=== PATIENT | female | born 1985 | race Caucasian/White ===

== ENCOUNTER 2017-07-27 17:44 | Inpatient (IN) | payer OTHER ==
[~2017-07-27] VITALS: Ht 185.4 cm; Wt 91.9 kg
[2017-07-27 18:11] VITALS: BP 114/70; PULSE 80; RESP 22; O2SAT 99
--- NOTE | 2017-07-27 18:56 | ED.REPORT ---
HPI-General Illness Date of Service Jul 27, 2017 ED Provider: Andrei Robbins MD Pt is a female who is 34 weeks that presents to the ED c/o SOB onset 1300 today. She states her symptoms worsen with exertion and with lying down. She states that it is moderate in severity, constant, and associated with chest tightness. No lower extremity swelling or edema. No recent extended travel. She denies chills, blurred vision, abdominal pain, rash, numbness/tingling, neck pain, sore throat, or change in mental status. Nursing Notes Stated Complaint: DIFFICULTY BREATHING,RAPID HEART RATE,34 WKS PREG Chief Complaint: Respiratory Distress Nursing Notes Reviewed: Yes Allergies: Coded Allergies: No Known Allergies (Verified Allergy, Unknown, 07/27/17) General Time Seen by MD: 18:50 Chief Complaint Breathing problem Hx Obtained From: Patient Sudden in Onset?: Yes Quality: Painful Severity: Current: Mild Severity: Maximum: Mild Pertinent Negative: Pt denies other symptoms Exacerbated by: Moving affected area Recent Healthcare: No recent doctor visit, No recent hospitalization Similar Sx Previous: No Past Medical History Past Medical History Denies: Asthma, Diabetes mellitus Past Surgical History denies Smoking History Never Smoker Social History Alcohol Use: Denies alcohol use Drug Use: Denies drug use Other Social History: Occupation lives with work at [employer] 07/27/2017 Ambulatory Status Independent Review of Systems Full Review of Systems Constitutional: Denies: Chills Eyes: Denies: Blurred left, Blurred right Ears / Nose / Throat: Denies: Sore throat Respiratory: Reports: Dyspnea on exertion, Shortness of breath Cardiovascular: Reports: Dyspnea on exertion GI: Denies: Abdominal pain Musculoskeletal: Denies: Neck pain Skin: Denies Rash Neurologic: Denies: Numbness Psychiatric: Denies: Change mental status Complete sys rev & neg: except as marked. Physical Exam Nursing note and vitals reviewed. Constitutional: Well-developed, well-nourished. Not diaphoretic. Head: Normocephalic and atraumatic. Mouth/Throat: Oropharynx is clear and moist. No oropharyngeal exudate. Eyes: EOM are normal. Pupils are equal, round, and reactive to light. Neck: Supple, no tracheal deviation. Cardiovascular: Normal rate, regular rhythm. Equal and intact distal pulses throughout. Pulmonary/Chest: Effort normal and breath sounds normal. No respiratory distress. Abdominal: Gravid. Musculoskeletal: Range of motion grossly intact, moving all extremities. No edema or tenderness appreciated. Neurological: AOx3. Grossly nonfocal exam. Strength and sensation intact and equal to bilateral upper and lower extremities. Skin: Warm and dry, no rashes or pallor appreciated. Psychiatric: Appropriate mood and affect. Behavior appears normal. Vital Signs Vital Signs Date Time Temp Pulse Resp B/P Pulse Ox O2 Delivery O2 Flow Rate FiO2 07/27/17 18:11 37.0 80 22 114/70 99 Room Air Initial VS: Reviewed, Vital signs normal Interpretation & Diagnostics US VENOUS LEG DUPLEX BILATERAL IMPRESSION: 1. there is deep venous thrombosis in the left popliteal vein . It is occlusive and acute. 2. No abnormality is seen in the right leg. Dictated by: Teddy Mcgregor M.D. on 07/27/2017 at 21:28 Approved by: Teddy Mcgregor M.D. on 07/27/2017 at 21:30 Lab Results Interpretation Result Diagram: 07/28/17 0505 07/28/17 0505 Test 07/27/17 18:49 07/27/17 18:50 07/27/17 19:19 Sodium Level 137mEq/L (134-144) Chloride Level 102mEq/L (97-108) Carbon Dioxide Level 20mmol/L (18-29) Blood Urea Nitrogen 6mg/dL (6-20) Creatinine 0.56mg/dL (0.57-1.00) Estimat Glomerular Filtration Rate 180mL/min (>59) Glucose Level 105mg/dL (60-99) Calcium Level 8.6mg/dL (8.5-10.1) Total Bilirubin 0.2mg/dL (0.0-1.2) Aspartate Amino Transf (AST/SGOT) 48U/L (0-50) Alanine Aminotransferase (ALT/SGPT) 34U/L (0-32) Alkaline Phosphatase 67U/L (25-150) Troponin T < 0.010ug/L (0.0-0.011) Pro-B-Type Natriuretic Peptide 44.30pg/mL (0-130) Total Protein 6.5g/dL (6.4-8.4) Albumin 3.4g/dL (3.4-5.0) Hold Morales Top Tube Received (Received) Urine Color Straw (YELLOW) Urine Appearance Clear (CLEAR,HAZY) Urine pH 5.5 (5.0-8.0) Urine Specific [place] 1.005 (1.003-1.035) Urine Protein Negativemg/dL (NEG,TRACE) Urine Glucose (UA) 100mg/dL (NEGATIVE) Urine Ketones Negativemg/dL (NEGATIVE) Urine Occult Blood Negative (NEGATIVE) Urine Nitrite Negative (NEGATIVE) Urine Bilirubin Negative (NEGATIVE) Urine Urobilinogen Normalmg/dL (NORMAL) Urine Leukocyte Esterase Negative (NEGATIVE) Urine RBC 0-2/hpf (0-2) Urine WBC 0-5/hpf (0-5) Urine Epithelial Cells Few/hpf (NONE-MOD) Urine Crystals None seen (NONE SEEN) Urine Bacteria None/hpf (NONE-FEW) Urine Hyaline Casts None/lpf (NONE) Urine Granular Casts None seen (NONE SEEN) Urine Waxy Casts None seen (NONE SEEN) Urine Red Blood Cell Casts None seen (NONE SEEN) Urine White Blood Cell Casts None seen (NONE SEEN) Urine Mucus None seen (None Seen) Urine Trichomonas None seen (NONE SEEN) Urine Yeast None (NONE SEEN) Urinalysis Comment None Urine Culture Reflexed Not indicated Hold Urine Received (Received) ECG Interpretation ECG Interpretation: Sinus rhythm, rate 79 Ventricular trigeminy Time: 18:52 Interpreted by: ED physician CT Chest Interpretation IMPRESSION: Pulmonary embolus is not identified. No acute disease is seen in the lungs. Other than what is thought to be a most miniscule amount of pleural fluid posteriorly Dictated by: Teddy Mcgregor M.D. on 07/27/2017 at 21:30 Approved by: Teddy Mcgregor M.D. on 07/27/2017 at 21:36 Study type: CT pulm angiogram Interpretation / Wet Read by: Interpret - Radiologist Re-Eval/Medical Decision Med Decision/Clinical Course 32 year old female presents with sudden onset of shortness of breath, since 1 pm today. Patient reports in the few hours her heart has been feeling "heavy" Labs are unremarkable. US and CT PE are pending. Discussed the risks vs benefits of the CT imaging and patient agrees to imaging. Labs: CMP: Potassium: 3.6 Magnesium: 1.8 Negative troponin BNP within normal limits CMP otherwise grossly within normal limits CBC: WBC 10.6 CBC otherwise grossly within normal limits US VENOUS LEG DUPLEX BILATERAL IMPRESSION: 1. there is deep venous thrombosis in the left popliteal vein . It is occlusive and acute. 2. No abnormality is seen in the right leg. EKG: Sinus rhythm, rate [address] Angiogram of Chest Pulmonary Embolism: IMPRESSION: Pulmonary embolus is not identified. Risks and benefits of Lovenox discussed with patient. Possible that she may have a peripheral PE not identified on the CT scan. Plan admission for further management and evaluation, anticoagulation, CHAINSAW MECHANIC consultation. Patient agreeable to the plan as stated, no further questions. Source of Hx: Old records Time of Eval: 21:52 Re-Evaluation/Progress Note: Pt rechecked. Discussed plan for admission. Pt understands and agrees with plan. All questions addressed. Consultation #1: Referral / Consult Name: Aristides Mcneil MD Consulted With: Hospitalist Call Returned at: 21:44 Area Secretary: Will see patient, Agrees with plan, Accepts admit Note: Dr. Robbins discussed pt's case with hospitalist, Dr. Mcneil. He accepts admission. Consultation #2: Referral / Consult Name: Tomás Negrete MD Consulted With: Cardiology Call Returned at: 20:11 Area Secretary: Agrees with eval, Agrees with plan Note: Discussed pt's case with refining equipment operator, Dr. Negrete. He recommends keeping her potassium levels above 4 and magnesium above 2. Consultation #3: Referral / Consult Name: Jared Whipple MD Call Returned at: 22:33 Area Secretary: Agrees with eval, Agrees with plan Note: Discussed pt's case with CHAINSAW MECHANIC, Dr. Whipple. Counseled Regarding: Diagnosis, Lab results, Need for admission Discharge & Departure Primary Impression: DVT (deep vein thrombosis) in Additional Impressions: Respiratory distress Weeks of gestation: 34 weeks Qualified Code: Z3A.34 - 34 weeks gestation of Disposition: ADMITTED TO HOSPITAL Discharge Condition All VS Reviewed: Yes Condition: Stable Referrals: Tino Roman MD (PCP) EDSupervising Provider for APC: Andrei Robbins MD Scribe Attestation Portions of this note were transcribed by Britta Mercado. I, Dr. Robbins, personally performed the history, physical exam and medical decision-making; I reviewed and confirmed the accuracy of the information in the transcribed note. Attending Statement I saw and evaluated the patient both independently and in conjunction with the [employer]. I agree with the plan and findings as documented above, and have documented my own history and physical above and edited the rest as such. copies to: Tino Roman MD, William B MD Jul 27, 2017 18:56 Jaida Butt [employer] Jul 27, 2017 20:06 Britta Mercado Jul 27, 2017 21:58 2. No abnormality is seen in the right leg. EKG: Sinus rhythm, rate [address] Angiogram of Chest Pulmonary Embolism: IMPRESSION: Pulmonary embolus is not identified. Risks and benefits of Lovenox discussed with patient. Possible that she may have a peripheral PE not identified on the CT scan. Plan admission for further management and evaluation, anticoagulation, CHAINSAW MECH[employer]IC consultation. Patient agreeable to the plan as stated, no further questions. Source of Hx: Old records Time of Eval: 21:52 Re-Evaluation/Progress Note: Pt rechecked. Discussed plan for admission. Pt understands and agrees with plan. All questions addressed. Consultation #1: Referral / Consult Name: Aristides Mcneil MD Consulted With: Hospitalist Call Returned at: 21:44 Area Secretary: Will see patient, Agrees with plan, Accepts admit Note: Dr. Robbins discussed pt's case with hospitalist, Dr. Mcneil. He accepts admission. Consultation #2: Referral / Consult Name: Tomás Negrete MD Consulted With: Cardiology Call Returned at: 20:11 Area Secretary: Agrees with eval, Agrees with plan Note: Discussed pt's case with refining equipment operator, Dr. Negrete. He recommends keeping her potassium levels above 4 and magnesium above 2. Consultation #3: Referral / Consult Name: Jared Whipple MD Call Returned at: 22:33 Area Secretary: Agrees with eval, Agrees with plan Note: Discussed pt's case with CHAINSAW MECHANIC, Dr. Whipple. Counseled Regarding: Diagnosis, Lab results, Need for admission Discharge & Departure Primary Impression: DVT (deep vein thrombosis) in Additional Impressions: Respiratory distress Weeks of gestation: 34 weeks Qualified Code: Z3A.34 - 34 weeks gestation of Disposition: ADMITTED TO HOSPITAL Discharge Condition All VS Reviewed: Yes Condition: Stable Referrals: Tino Roman MD (PCP) EDSupervising Provider for APC: Andrei Robbins MD Attestation Portions of this note were transcribed by Britta Mercado. I, Dr. Robbins, personally performed the history, physical exam and medical decision-making; I reviewed and confirmed the accuracy of the information in the transcribed note. Attending Statement I saw and evaluated the patient both independently and in conjunction with the [employer]. I agree with the plan and findings as documented above, and have documented my own history and physical above and edited the rest as such. copies to: Tino Roman MD, William B MD Jul 27, 2017 18:56 Jaida Butt [facility] Jul 27, 2017 20:06 Britta Mercado Jul 27, 2017 21:58
[2017-07-27 18:57] LABS: BASOPHILS % (AUTO) 0.2 % (0-3); EOSINOPHILS % (AUTO) 1.8 % (0-5); MONOCYTES % (AUTO) 8.8 % (4-12); Mean Corpuscular Hemoglobin 30.6 pg (27.0-35.0); Mean Corpuscular Volume 88.5 fL (81-100); NEUTROPHILS % (AUTO) 74.1 % (40-74); Platelet Count 198 bil/L (150-400)
[2017-07-27 19:11] LABS: INR 0.86 ratio
[2017-07-27 19:26] LABS: Magnesium 1.8 mg/dL (1.6-2.6)
[2017-07-27 19:27] LABS: TROPONIN T < 0.010 ug/L (0.0-0.011)
--- NOTE | 2017-07-27 21:31 | DRSVH ---
PROCEDURE: US VENOUS LEG DUPLEX BILATERAL INDICATIONS: SOB TECHNIQUE: Real-time imaging, as well as color and pulse Doppler interrogation, were performed of the deep veins of both legs from the inguinal ligament to the popliteal fossa. COMPARISON: None. FINDINGS: The deep veins on the right are normally compressible, and free of intraluminal thrombus. Color and pulse Doppler demonstrate normal phasic intravascular flow. There is normal augmentation response to distal compression maneuver. The left leg shows the common femoral and superficial femoral veins to be open without thrombus. The popliteal vein on the left however shows occlusive thrombus IMPRESSION: 1. there is deep venous thrombosis in the left popliteal vein . It is occlusive and acute. 2. No abnormality is seen in the right leg. Dictated by: Teddy Mcgregor M.D. on 07/27/2017 at 21:28 Approved by: Teddy Mcgregor M.D. on 07/27/2017 at 21:30
--- NOTE | 2017-07-27 21:38 | DRSVH ---
PROCEDURE: CT ANGIO CHEST PULMONARY EMBOLISM ([id number]) INDICATIONS: 34 WEEKS , sob TECHNIQUE: After the administration of intravenous contrast, 2 mm thick sections acquired from the pulmonary [place] to the posterior costophrenic angles. 3-dimensional maximum intensity projection (MIP) coronal a nd sagittal reformats were then acquired through the thorax. For radiation dose reduction, the follo wing was used: automated exposure control, adjustment of mA and/or kV according to patient size. COMPARISON: None. FINDINGS: Image quality: Fair because of somewhat heterogeneous contrast density in the pulmonary vasculature t owards the end of the injection. Pulmonary arteries: Pulmonary arteries are normal in size, and demonstrate no intraluminal filling d efects to suggest central pulmonary embolism. Lungs and pleura: Lungs are clear. No pleural effusions or pneumothorax. Central and peripheral ai rways are patent. Mediastinum: Heart size is normal, without pericardial effusion. No mediastinal or hilar adenopathy . Thoracic aorta is normal in caliber and enhancement. Esophagus is normal in caliber, without hiat al hernia. Bones and chest wall: No suspicious bony lesions. Ribs and thoracic spine appear intact throughout. Thyroid gland is within normal limits. No axillary or supraclavicular adenopathy. Abdomen: Visualized upper abdominal solid organs appear normal in the early arterial phase of enhanc ement. IMPRESSION: Pulmonary embolus is not identified. No acute disease is seen in the lungs. Other than wh at is thought to be a most miniscule amount of pleural fluid posteriorly Dictated by: Teddy Mcgregor M.D. on 07/27/2017 at 21:30 Approved by: Teddy Mcgregor M.D. on 07/27/2017 at 21:36
[2017-07-27] MEDS ORDERED: Polyethylene Glycol (PEG) 17 Gm Powder PO PRN (22:55)
[2017-07-27] MEDS ORDERED: Alum-Mag Hydrox-Simeth 30 mL Suspension PO PRN (22:55)
[2017-07-27] MEDS ORDERED: Ondansetron 2 mg/mL 2 mL Inj IVPUSH PRN (22:55)
[2017-07-27] MEDS ORDERED: Heparin 5,000 Unit/mL Inj IVPUSH PRN (23:05)
[2017-07-27] MEDS ORDERED: Heparin 25K Unit/500mL 0.45 NS 25,000 UNIT in IV Premix 1 EACH IV SCH (23:05)
[2017-07-27 23:06] VITALS: BP 126/64; PULSE 67; RESP 18; O2SAT 98
--- NOTE | 2017-07-27 23:13 | PCM.HPMED ---
Subjective Date of Service Jul 27, 2017 Primary Provider: Admitting Physician: Aristides Mcneil MD Primary Care Physician: Tino Roman MD Attending Physician: Aristides Mcneil MD Admit Status: From the Emergency Department Chief Complaint: Chest heaviness History of Present Illness: Patient is a 32-year-old female 2 para 1 at 34 weeks presented with difficulty breathing and bounding heartbeat Patient is a 32-year-old female 34 weeks , otherwise healthy. She states that today she started feeling as if she had a pounding heartbeat and accompanying difficulty breathing. She states she has never had anything like this before. She admits to a history of heartburn, but states this feels different. She admits to polyuria without dysuria or hematuria. She admits to increased bowel movements, approximately 3 per day and soft poorly formed stool. She denies lightheadedness, dizziness, chest pain, nausea, vomiting. Review of Systems: Complete ROS was performed and pertinent positives and negatives included in the history of present illness. All other findings were negative. Allergies Coded Allergies: No Known Allergies (Verified Allergy, Unknown, 07/27/17) Home Medications 1. vitamin PMH 1. No past medical history Surgical History 1. Anterior cruciate ligament repair left leg Family History No family history of blood clots, strokes, heart problems. Social History Hx Alcohol Use: Yes (occasional) Hx Substance Use: No Hx Tobacco Use: No Smoking Status: Never Smoker Living Arrangement: with Family Exam Vital Signs Vital Sign - Last Date Time Temp Pulse Resp B/P Pulse Ox O2 Delivery O2 Flow Rate FiO2 07/27/17 18:11 37.0 80 22 114/70 99 Room Air Exam General: Nondistressed, well-developed gravid female HEENT: NC/AT, PERRLA, EOM intact. Nontender sinuses, no nasal discharge. Good dentation, no erythema, nor exudate present in oropharynx. No thyromegaly appreciated. CV: Irregular rhythm, no murmurs, gallops, or rubs appreciated RESP: Clear to auscultation bilaterally, no wheezes or rhonchi appreciated ABD: Bowel sounds normal, gravid, nontender to palpation. Positive CVA on right , no suprapubic tenderness EXT: No joint swelling, no edema appreciated. Positive Houmans sign on the left LYMPH: No cervical or axillary adenopathy appreciated NEURO: Symmetric face, cranial nerves grossly intact, strength intact bilaterally upper and lower extremities, sensation to light touch intact bilaterally upper and lower extremities. PSYCH: Oriented 4. Linear and appropriate conversation. Skin: No rashes or ecchymosis appreciated Lab and Diagnostics Result Diagram: 07/27/17184807/27/171848 Assessment & Plan Patient is a 32-year-old 2 para 1 female that presents with shortness of breath and pounding heartbeat without any known past medical problems 1. DVT left lower extremity, present upon admission and ongoing -Patient found to have DVT by ultrasound and lower left extremity -Start anticoagulation therapy. Patient is 34 weeks without risk factors for early delivery. -Patient was started on heparin with heparin loading dose. Pharmacy called to recommend Lovenox, PERSONNEL RESEARCH PSYCHOLOGIST found heparin acceptable. Continue heparin for time being with expectation to discharge on Lovenox. 2. Dysrhythmia, present upon admission and ongoing -Patient has no known history of dysrhythmias, bigeminy present on EKG in emergency department -Cardiology consulted, they recommend replacing potassium to 4 and magnesium to 2. Patient is 3.6 and 1.8 upon admission -Negative troponin, BNP within normal limits - Started potassium magnesium replacement protocol -This is likely the cause of her shortness of breath. PE CT showed no indication of PE at this time. 3. CVA tenderness, present on admission and ongoing -UA to rule out UTI. -Very mild leukocytosis at 10.6 with very mild left shift at 74.1 neutrophils Patient has been admitted into inpatient, she is expected to spend greater than to midnight in the hospital Pain Evaluation: Adequate Pain Control GI Prophylaxis: Proton Pump Inhibitor Resuscitation Status: CPR: Attempt Resuscitation Attending Statement The patient was seen and examined together with Dr. Berg on 07/27 and I agree with the history, exam and plan as outlined in the note above. Kym Berg DO Jul 27, 2017 23:13 Aristides Mcneil MD Jul 28, 2017 01:24
[2017-07-27 23:18] LABS: APPEARANCE,URINE CLEAR (CLEAR,HAZY); COLOR,URINE STRAW (YELLOW); OCCULT BLOOD,URINE NEGATIVE (NEGATIVE); PH,URINE 5.5 (5.0-8.0); UROBILINOGEN,URINE NORMAL (NORMAL)
[2017-07-27 23:40] VITALS: BP 125/77; PULSE 64; RESP 20; O2SAT 99
[2017-07-27 23:41] VITALS: PULSE 78
[2017-07-28] VITALS (7 sets, daily range): BP systolic 113–126; BP diastolic 59–70; PULSE 61–74; RESP 18–20; O2SAT 95–98
[2017-07-28 00:04] LABS: INR 0.86 ratio
[2017-07-28] MEDS ORDERED: Heparin Protocol Boluses IVPUSH PRN (01:10)
[2017-07-28] MEDS: Magnesium Sulfate 50% Inj 1 GM in Dextrose 5% 50 ML IV ONE ×2 (01:17→01:41)
[2017-07-28] MEDS: Heparin 25K Unit/500mL 0.45 NS 25,000 UNIT in IV Premix 1 EACH IV SCH ×2 (01:17→15:10)
[2017-07-28] MEDS ORDERED: Potassium Chloride 20 mEq SR Tablet PO ONE ×2 (01:30→08:15)
[2017-07-28 05:25] LABS: BASOPHILS % (AUTO) 0.2 % (0-3); EOSINOPHILS % (AUTO) 2.5 % (0-5); MONOCYTES % (AUTO) 8.6 % (4-12); Mean Corpuscular Hemoglobin 30.5 pg (27.0-35.0); Mean Corpuscular Volume 89.1 fL (81-100); NEUTROPHILS % (AUTO) 66.7 % (40-74); Platelet Count 175 bil/L (150-400)
--- NOTE | 2017-07-28 06:21 | NUR ---
Admit Pt admitted around 2340, A&O, denies any pain, reports SOB and chest tightness. Heparin gtt started as ordered. Pt updated about plan of care. Pt did not bring med list, will bring in AM.
--- NOTE | 2017-07-28 10:06 | NUR ---
OB: Pt reports movement. Denies any other OB related concerns. FHT's via doppler 145, with accels audible to 162, listened for 1 full minute, no decels heard. Baby moving.
--- NOTE | 2017-07-28 11:31 | DRSVH ---
[facility] [address] [place] [address] Echocardiogram Report Name: BRITTANY PETERS Date: 09/2017 Height: 73 in Hospital Exam Location: [facility] Weight: 200 lb Gender: Female BSA: 2.2 m2 : 1985 Age: 32 yrs BP: 125/68 m mHg Reason For Study: Arrhythmia Ordering Physician: HOSPITALIST [facility] Performed By: [facility] Staff Referring Physician: Dr. Tino Roman Interpretation Summary 1. Normal left ventricular size, wall thickness and systolic function with an estimated EF of 60-65% 2. Upper limits of normal right ventricular size with normal systolic function. 3. No evidence for valvular pathology 4. Frequent PVCs There is no old study for comparison Procedure: A two-dimensional transthoracic echocardiogram with color flow and Doppler was performed. The study quality was technically adequate. There is no prior echocardiogram noted for this patient. The patient had frequent PVCs during the exam. Left Ventricle: There is normal left ventricular wall thickness. The left ventricle is normal in size. The ejection fraction is estimated to be 60-65%. Right Ventricle: A moderator band is seen in the right ventricle. Upper limits of normal size. The right ventricular systolic function is normal. Atria: The left atrium is mildly dilated. The right atrium is borderline dilated. No color doppler evidence for an ASD. Mitral Valve: The mitral valve is normal in structure and function. There is trace mitral regurgitation. Aortic Valve: The aortic valve is normal in structure and function. No aortic regurgitation is present. Tricuspid Valve: The tricuspid valve is normal. There is a trace or physiologic amount of tricuspid regurgitation. Pulmonary artery pressures cannot be estimated because of the lack of a measurable TR jet velocity. Pulmonic Valve: The pulmonic valve is normal in structure and function. There is trace pulmonic regurgitation. Great Vessels: The aortic root is normal size. The ascending aorta is normal in size. The aortic arch is normal in size. The IVC is dilated (diameter is greater than 2.1 cm) yet it collapses greater than 50% with a sniff. This suggests a right atrial pressure of 8 mm Hg. Pericardium/ Pleura There is no pericardial effusion. There is no pleural effusion. MMode/2D Measurements & Calculations LVIDd: 5.4 cm RA long axis LVOT diam: 2.3 cm LVIDs: 4.0 cm LA A2 area: 22.8 cm AoV Opening FS: 25.4 % LA A4 area: 25.1 cm RA area EPSS: 0.78 cm LA length (vol) Ao root diam IVSd: 0.92 cm : 21.1 cm LVPWd: 0.74 cm LA vol: 81.1 ml RA vol asc Aorta Diam LA vol index : 79.0 ml RA Ao Arch Diam (Prox : 36.7 mm2 Trans): 2.6 cm IVC diam: 2.5 cm LV pretty. diameter/BSA LV sys. diameter/BSA TAPSE: 3.8 cm (cm/m^2): 2.5 (cm/m^2): 1.9 Doppler Measurements & Calculations Ao V2 max MV E max denis MV E/A: 1.3 PA V2 max : 160.1 cm/sec : 78.4 cm/sec Med Peak E' Denis : 91.5 cm/sec Ao max PG MV A max denis PA mean PG : 10.2 mmHg : 61.5 cm/sec E/E' med: 6.6 : 1.6 mmHg Ao mean PG MV P1/2t: 71.6 msec Lat Peak E' Denis LVOT Max Denis E/E' lat: 4.5 : 115.4 cm/sec E/e' average: 5.6 LAWRENCE(I,D): 3.1 cm sev ratio MV dec time MV P1/2t max denis Ao V2 mean LV V1 max PG : 0.24 sec : 116.0 cm/sec MVA(P1/2t): 3.1 cm2 Ao V2 VTI: 34.1 cm LV V1 VTI LAWRENCE(V,D): 3.1 cm2 : 24.5 cm PA V2 mean LAWRENCE indexed to BSA : 59.9 cm/sec (cm^2/m^2): 1.4 Reading Physician:11:30 AM
--- NOTE | 2017-07-28 11:32 | NUR ---
Social Work-initial assessment/ readiness for discharge/multidisciplinary rounds: Data:See initial assessment. Pt is a 32 y/o female who was admitted on 07/27/17 for DVT per H&P. Pt's insurance is [employer] and PCP is Tino Roman MD. EMR Reviewed. MIR met with pt and at bedside, SW role explained. Pt is alert and oriented x3. Pt and live at home where she remains independent with ADLs. Pt has one daughter and is currently with her second baby 34 weeks. Pt drives and is independent at baseline. Pt has no HH or SNF history. Pt has no contact center agent are insurance or VA benefits. SW discussed DPOA/ advanced directive, Pt confirms she has not completed this, information provided. SW provided pt and with a discharge planning checklist and encouraged them to call with any questions, phone number provided on white board in room. Pt is wondering if SW knows when OBGYN is going to be coming to see, SW explained that SW would check with RN. No concerns noted around pt's capacity for self care from RN or MD. SW updated RN who will look into this and update pt. No anticipated discharge needs. SW will continue to follow if needs arise. Assessment:Pt who is independent at baseline. Plan:Pt to discharge home when medically stable via POV. No anticipated discharge needs. SW will continue to follow if needs arise. TALYA Pabon Addendum: 07/28/17 at 1142 by KAREN BLACKMON SS Amended: Links added.
--- NOTE | 2017-07-28 11:51 | PCM.PNMED ---
Subjective Date of Service Jul 28, 2017 Subjective pt still feels labored on breathing but denied chest pressure. denied palpitation. O2 sat remained normal on RA. no event on telemetry pt c/o mild calf pain on left. denied pleuritic chest pain. TTE didn't show any valvular dz, no RV strain Exam Vital Signs Vital Sign - Last Date Time Temp Pulse Resp B/P Pulse Ox O2 Delivery O2 Flow Rate FiO2 07/28/17 09:46 36.3 68 18 113/68 97 Room Air Intake and Output 07/27/17 07/27/17 07/28/17 Cumulative From/Thru 15:00 23:00 07:00 07/27/17 18:11 - 07/28/17 06:55 Intake Total 647 ml 647 ml Output Total 900 ml 900 ml Balance -253 ml -253 ml Intake Oral 400 ml 400 ml IV Total 247 ml 247 ml Output Urine Total 900 ml 900 ml # Voids 1 1 # Bowel Movements 0 0 Exam lady, NAD, comfortably laying down on the bed no JVD, MMM, no LAD RRR, nl s1, s2 no mrg CTAB, no w,c S,ND,NT,normoactive BS+ warm, no edema, pulses 2/2 IVs and Medications Medications Reviewed: Medications were reviewed in detail Lab and Diagnostics Result Diagram: 07/28/1750407/28/17 050 Assessment & Plan Patient is a 32-year-old 2 para 1 female that presents with shortness of breath and pounding heartbeat without any known past medical problems 1. acute onset DVT left lower extremity, POA, likely provoked in the setting of increased coagulability from , started on Heparin gtt, -pt is tolerating heparin gtt well, will switch to LMWH after OB confirmation. -duration likely be 3month, given first episode, provoked. -pt is afraid if it affect her delivery, appreciate OB service for this question. LMWH likely needs to switch to heparin gtt prior to delivery, 2. PVC, bigeminy, likely symptomatic, POA, TTE didn't show structural heart dz. no concerning FHx of heart dz or VTE. -continue telemetry for high degree blocks. ventricular arrhythmias CVA tenderness, POA, UA is unremarkable, no urinary complaints,will continue to monitor #normal , [id number], reportedly that baby is well, appreciate OB consult to check status. dispo likely 1-2days, home GI Prophylaxis: Proton Pump Inhibitor Resuscitation Status: CPR: Attempt Resuscitation Time spent 35min Nathaniel Ramirez MD Jul 28, 2017 11:51
--- NOTE | 2017-07-28 17:18 | NUR ---
patient education long discussion today about DVT and standerd treatment plans, Lovenox injections. Patient and verbalized understanding. patient concerned about being on blood thinners and what to do when she goes into labor. patient 34 weeks . I encouraged patient to have a discussion with with her OB provider about a plan with she delivers and anticoagulation medications. Patient agreeable. continue with plan of care.
--- NOTE | 2017-07-28 19:37 | PROG NOTE ---
[address] [address] PROGRESS NOTE PATIENT: BRITTANY PETERS : 1985 MR#: [id number] ADMIT: 07/27/2017 JOB ID: [id number] DATE: 07/28/2017 SUBJECTIVE: The patient is a 32-year-old, 2, para 1, at 34 weeks' gestation, estimated due date September 06, 2017, presented to the emergency department with complaints of shortness of breath since 1 p.m. July 27, 2017. The shortness of breath, started at rest, was getting worse with exertion, moderately severe associated with chest tightness. The patient denies similar episodes of shortness of breath, and chest tightness during current . She denies fever and chills, denies headache, blurred vision, right upper quadrant pain, swelling of the hands or feet. No abdominal pain. Her care was uncomplicated. OBSTETRICAL HISTORY: One spontaneous vaginal delivery at 37+ weeks, uncomplicated and delivery. ALLERGIES: NKDA. MEDICAL HISTORY: Unremarkable. SURGICAL HISTORY: Patient denies. SOCIAL HISTORY: Patient denies alcohol, drug use, smoking. PHYSICAL EXAMINATION: Temperature 36.7, pulse 82, respiratory rate 20, blood pressure 114/70, pulse oximetry on room air 99%. Constitutional: Well developed, well nourished, in no apparent distress at the time of the exam. HEENT: PERRLA. Cardiovascular system: Normal rate and rhythm. No murmurs. Chest normal breath sounds bilaterally. No adventitious sounds. Good respiratory effort. No respiratory distress at the time of the exam. Abdomen is gravid, nondistended, nontender, fundal height 34 cm. Cephalic presentation. Extremities: No pitting edema. There is a tenderness on palpation of the left calf. IMAGING: Venous Doppler bilaterally showed deep venous thrombosis of the left popliteal vein that is occlusive and acute. Spiral CT scan of the chest did not show any pulmonary embolus. LABORATORY DATA: WBC count 10.6, hemoglobin 12, hematocrit 34.7, platelets 198. AST 48, ALT 34, alkaline phosphatase 67. Pro B-natriuretic peptide 44.3. Normal renal function testing. ASSESSMENT AND PLAN: A 32-year-old, 2, para 1, at 34 weeks presents to the emergency department with acute onset of left popliteal vein deep venous thrombosis with occlusion. Spiral chest CT scan was negative for pulmonary embolus. The patient had an episode of shortness of breath in the afternoon of July 27, 2017. At the time of the exam, she is in no acute apparent distress. She reports good movements. She denies any personal or family history of blood clots, no history of antiphospholipid syndrome, no history of pre-eclampsia or hypertensive disorders of . The unfractionated heparin was started to bring it to therapeutic level. The patient was explained that she needs to be on anticoagulation antepartum and six weeks . All the workup for coagulopathies and antiphospholipid syndrome (APS) will be done after delivery. She will need to be switched to unfractionated heparin at 36 weeks of her current . So instead of bringing her level to therapeutic and changing to Lovenox, recommendation is to continue with unfractionated heparin until delivery. Twice a day heart tone check is recommended. kick counts was encouraged.
--- NOTE | 2017-07-28 19:59 | NUR ---
HEART TONES ALONSO Hernández from family here to do heart tones. FHTs baseline 148, accel up to 156.
--- NOTE | 2017-07-28 20:59 | NUR ---
Comfort P: Pt denies pain to her left leg. States that she has not had any pain in her left leg during the course of her stay here at the hospital I: Pt understands to report symptoms of pain or shortness of breath. E: Will cont to monitor
[2017-07-29 00:01] VITALS: PULSE 72
[2017-07-29 01:21] VITALS: BP 123/68; PULSE 71; RESP 20; O2SAT 96
[2017-07-29] MEDS: Heparin 25K Unit/500mL 0.45 NS 25,000 UNIT in IV Premix 1 EACH IV SCH (01:25)
[2017-07-29] MEDS ORDERED: RANI150C4 PO (01:37)
[2017-07-29] MEDS ORDERED: SERT20OR6 PO (01:37)
[2017-07-29 05:57] VITALS: BP 112/69; PULSE 67; RESP 17; O2SAT 97
[2017-07-29 06:19] LABS: BASOPHILS % (AUTO) 0.3 % (0-3); EOSINOPHILS % (AUTO) 3.2 % (0-5); MONOCYTES % (AUTO) 8.6 % (4-12); Mean Corpuscular Hemoglobin 30.4 pg (27.0-35.0); Mean Corpuscular Volume 88.9 fL (81-100); NEUTROPHILS % (AUTO) 69.3 % (40-74); Platelet Count 181 bil/L (150-400)
[2017-07-29 06:30] LABS: Magnesium 1.7 mg/dL (1.6-2.6)
[2017-07-29 08:51] VITALS: BP 123/72; PULSE 70; RESP 18; O2SAT 97
[2017-07-29 08:55] VITALS: PULSE 61
--- NOTE | 2017-07-29 09:03 | PROG NOTE ---
[address] [address] PROGRESS NOTE PATIENT: BRITTANY PETERS : 1985 MR#: [id number] ADMIT: 07/27/2017 JOB ID: [id number] DATE: 07/29/2017 SUBJECTIVE: The patient is doing okay today. Her initial consultation was completed yesterday by Dr. Ley and consultation note is currently pending. Briefly she was admitted with acute left lower extremity DVT with occlusion of the left popliteal vein. She is doing okay today. She also has shortness of breath initially at admission, however, spiral CT did not reveal any pulmonary embolus. She has been started on a heparin drip and she is doing well today. Her care has been managed by Dr. Roman up until this point. Objectively her temperature is 36.3, her pulse is 61, respiratory rate is 20. Her blood pressure is 114/70. She is sating 98% on room air. In general, she is awake, alert, oriented, in no acute distress. Her abdomen is gravid with size appropriate for dates. She is getting Doptones daily. LABORATORIES: This morning showed a white count of 9.6, hemoglobin 11.5, platelet count of 175. ASSESSMENT AND PLAN: This is a 32-year-old G 2, P 1-0-0-1 female who is 34 weeks admitted with an acute left popliteal DVT without evidence of PE on spiral CT examination, currently managed by Dr. Ramirez. PLAN: 1. DVT. This is currently being managed by Dr. Ramirez. She has evidence of acute occlusion of her left popliteal vein without any evidence of PE. Echocardiogram showed a normal ejection fraction and normal left ventricular size and no evidence of valvular pathology. At this point in time, she has been on a heparin drip. In general, patients are managed on Lovenox in with transition to heparin from 36 weeks onward until the time of delivery. At this point in time, given her late gestational age, continuing with therapeutic heparin dosing would be recommended until delivery rather than transitioning her to Lovenox and back to heparin in another week and a half, though this will be managed at the discretion of Dr. Ramirez. Additionally I would recommend evaluation with a maternal medicine specialist to discuss timing of delivery and care facility for delivery. She may be better served by delivery at a higher acuity facility in preparation for any possible complications related to her acute DVT. She will need to continue anticoagulation for 3-6 months and she will need a full workup for any cause for DVT including evaluation for clotting disorders. 2. status. At this point she is 34 weeks gestational age. I would recommend twice daily NSTs while hospitalized as an inpatient followed by twice weekly NSTs as an outpatient until delivery. Timing of delivery will be further discussed with Maternal Medicine, most likely scheduled between 39 and 40 weeks of gestation. All questions and concerns of the patient were answered and I have sent a task to our clinic nurses to work on coordinating Maternal Medicine referral. MARISA
--- NOTE | 2017-07-29 09:51 | PCM.DIMED ---
Discharge Instructions Date of Service Jul 29, 2017 Dates of Hospitalization Jul 27, 2017 at 22:25 Discharge Diagnosis Discharge Diagnosis acute dx acute onset DVT left lower extremity, likely provoked in the setting of increased coagulability from PVC, bigeminy, likely symptomatic chronic dx normal , [id number], Medication Instructions Additional med instructions Please continue Heparin shot 10,000unit every 12hours until you see your doctor Diet Discharge Diet: No restrictions Activity Discharge Activity: No restrictions Call your provider Call your provider for: Bleeding Patient Instructions Patient Instructions You were hospitalized with acute blood clots in your left calf, likely in the setting of normal . You received anticoagulation treatment with heparin , you tolerated well. As per discussion with OB, you are discharged with heparin injection. Given your expected delivery in near future, you may need to be monitored in higher level of facility at the time of delivery, Please continue to follow with your . Hospitalization course was informed, will refer you appropriately. Follow-up Provider: Tino Roman MD Follow-up with PCP in: 1 week Nathaniel Ramirez MD Jul 29, 2017 09:51
--- NOTE | 2017-07-29 10:50 | NUR ---
Social Work-discharge: Data:EMR reviewed. Pt is on day 2 of hospitalization for DVT per H&P. Pt is medically stable for discharge today. Pt resides at home with her and children. Pt has been up independent in his room. No discharge needs identified. All updated and agreeable to plan. Assessment:pt who is independent at baseline. Plan:Pt to discharge home today via POV. No discharge needs identified. All updated and agreeable to plan. TALYA Pabon
[2017-07-29] MEDS ORDERED: HEPA100D36 SUBQ (11:26)
[2017-07-29] MEDS ORDERED: HEPA500039 SUBQ (12:11)
[2017-07-29] MEDS ORDERED: [UNRECOGNIZED DRUG - CODE] MC (12:11)
[2017-07-29] MEDS ORDERED: Heparin 5,000 Unit/mL Inj SUBQ ONE (12:30)
--- NOTE | 2017-07-29 13:44 | NUR ---
DISCHARGE Patient discharged at 1330 left with who is to drive her home. Patient denies pain, nausea, and shortness of breath. Medications reviewed and new Rx given, patient verbalized understanding. Heparin injection and administration done, patient participated and modeled administration, with medication background present. IV catheter removed, personal belongings accounted for, and follow up instructions reviewed.
--- NOTE | 2017-07-29 15:50 | PCM.DC.MED ---
Discharge Summary Date of Service Jul 29, 2017 Dates of Hospitalization Date of Hospital Admission Jul 27, 2017 at 22:25 Date of Discharge: Jul 29, 2017 Providers: Admitting Physician: Aristides Mcneil MD Primary Care Physician: Tino Roman MD Attending Physician: Nathaniel Gamez MD Diagnosis at Time of Discharge Diagnosis at Time of Discharge acute dx acute onset DVT left lower extremity, likely provoked in the setting of increased coagulability from PVC, bigeminy, likely symptomatic chronic dx normal , [id number], Consultations OB Procedures XRay, CTs & MRIs PROCEDURE: US VENOUS LEG DUPLEX BILATERAL INDICATIONS: SOB TECHNIQUE: Real-time imaging, as well as color and pulse Doppler interrogation, were performed of the deep veins of both legs from the inguinal ligament to the popliteal fossa. COMPARISON: None. FINDINGS: The deep veins on the right are normally compressible, and free of intraluminal thrombus. Color and pulse Doppler demonstrate normal phasic intravascular flow. There is normal augmentation response to distal compression maneuver. The left leg shows the common femoral and superficial femoral veins to be open without thrombus. The popliteal vein on the left however shows occlusive thrombus IMPRESSION: 1. there is deep venous thrombosis in the left popliteal vein . It is occlusive and acute. 2. No abnormality is seen in the right leg. Dictated by: Teddy Mcgregor M.D. on 07/27/2017 at 21:28 Approved by: Teddy Mcgregor M.D. on 07/27/2017 at 21:30 PROCEDURE: CT ANGIO CHEST PULMONARY EMBOLISM ([id number]) INDICATIONS: 34 WEEKS , sob TECHNIQUE: After the administration of intravenous contrast, 2 mm thick sections acquired from the pulmonary apices to the posterior costophrenic angles. 3-dimensional maximum intensity projection (MIP) coronal and sagittal reformats were then acquired through the thorax. For radiation dose reduction, the following was used: automated exposure control, adjustment of mA and/or kV according to patient size. COMPARISON: None. FINDINGS: Image quality: Fair because of somewhat heterogeneous contrast density in the pulmonary vasculature towards the end of the injection. Pulmonary arteries: Pulmonary arteries are normal in size, and demonstrate no intraluminal filling defects to suggest central pulmonary embolism. Lungs and pleura: Lungs are clear. No pleural effusions or pneumothorax. Central and peripheral airways are patent. Mediastinum: Heart size is normal, without pericardial effusion. No mediastinal or hilar adenopathy. Thoracic aorta is normal in caliber and enhancement. Esophagus is normal in caliber, without hiatal hernia. Bones and chest wall: No suspicious bony lesions. Ribs and thoracic spine appear intact throughout. Thyroid gland is within normal limits. No axillary or supraclavicular adenopathy. Abdomen: Visualized upper abdominal solid organs appear normal in the early arterial phase of enhancement. IMPRESSION: Pulmonary embolus is not identified. No acute disease is seen in the lungs. Other than what is thought to be a most miniscule amount of pleural fluid posteriorly Dictated by: Teddy Mcgregor M.D. on 07/27/2017 at 21:30 Approved by: Teddy Mcgregor M.D. on 07/27/2017 at 21:36 Brief History History of present illness obtained by Dr. Mcneil Patient is a 32-year-old female 2 para 1 at 34 weeks presented with difficulty breathing and bounding heartbeat Patient is a 32-year-old female 34 weeks , otherwise healthy. She states that today she started feeling as if she had a pounding heartbeat and accompanying difficulty breathing. She states she has never had anything like this before. She admits to a history of heartburn, but states this feels different. She admits to polyuria without dysuria or hematuria. She admits to increased bowel movements, approximately 3 per day and soft poorly formed stool. She denies lightheadedness, dizziness, chest pain, nausea, vomiting. Hospital Course Patient is a 32-year-old 2 para 1 female that presents with shortness of breath and pounding heartbeat without any known past medical problems Patient was admitted with symptoms suggestive of DVT and possible PE. Lower extremity Doppler shows acute DVT on left popliteal vein, CT angio of chest did not show PE. Patient was started on heparin GTT as per the recommendation. PTT was in therapeutic range. heart was monitored and assessed by OB, didn't show any abnormalities. Given concern for being close to her term, OB recommended UFH 10,000unit q12h until the delivery rather than LMWH and referral to High risks OB service at prior to delivery. This was discussed her PCP in detail. Patient will follow up with PCP tomorrow for further care. Given first episode and no hx/FHx of VTE, miscarriage, it's possible that it's triggered by normal . However, further w/u for APS, other hypercoagulable disease likely needs to be pursued post- period. 1. acute onset DVT left lower extremity, POA, likely provoked in the setting of increased coagulability from , started on Heparin gtt, -pt is tolerating heparin gtt well, will switch to LMWH after OB confirmation. -duration likely be 3month, given first episode, provoked. -pt is afraid if it affect her delivery, appreciate OB service for this question. LMWH likely needs to switch to heparin gtt prior to delivery, 2. PVC, bigeminy, likely symptomatic, POA, TTE didn't show structural heart dz. no concerning FHx of heart dz or VTE. -continue telemetry for high degree blocks. ventricular arrhythmias CVA tenderness, POA, UA is unremarkable, no urinary complaints,will continue to monitor #normal , [id number], reportedly that baby is well, appreciate OB consult to check status. dispo likely 1-2days, home Exam Vital Signs (Last) Date Time Temp Pulse Resp B/P Pulse Ox O2 Delivery O2 Flow Rate FiO2 07/29/17 08:55 61 07/29/17 08:51 36.7 18 123/72 97 Room Air Exam Patient was examined on the day of discharge Test 07/27/17 18:49 07/27/17 18:50 07/27/17 19:19 07/27/17 23:38 Troponin T < 0.010ug/L (0.0-0.011) Pro-B-Type Natriuretic Peptide 44.30pg/mL (0-130) Hold Morales Top Tube Received (Received) Urine Color Straw (YELLOW) Urine Appearance Clear (CLEAR,HAZY) Urine pH 5.5 (5.0-8.0) Urine Specific [place] 1.005 (1.003-1.035) Urine Protein Negativemg/dL (NEG,TRACE) Urine Glucose (UA) 100mg/dL (NEGATIVE) Urine Ketones Negativemg/dL (NEGATIVE) Urine Occult Blood Negative (NEGATIVE) Urine Nitrite Negative (NEGATIVE) Urine Bilirubin Negative (NEGATIVE) Urine Urobilinogen Normalmg/dL (NORMAL) Urine Leukocyte Esterase Negative (NEGATIVE) Urine RBC 0-2/hpf (0-2) Urine WBC 0-5/hpf (0-5) Urine Epithelial Cells Few/hpf (NONE-MOD) Urine Crystals None seen (NONE SEEN) Urine Bacteria None/hpf (NONE-FEW) Urine Hyaline Casts None/lpf (NONE) Urine Granular Casts None seen (NONE SEEN) Urine Waxy Casts None seen (NONE SEEN) Urine Red Blood Cell Casts None seen (NONE SEEN) Urine White Blood Cell Casts None seen (NONE SEEN) Urine Mucus None seen (None Seen) Urine Trichomonas None seen (NONE SEEN) Urine Yeast None (NONE SEEN) Urinalysis Comment None Urine Culture Reflexed Not indicated Hold Urine Received (Received) Prothrombin Time 9.2sec (8.1-12.5) Prothromb Time International Ratio 0.86ratio Test 07/29/17 06:00 White Blood Count 9.6th/mm3 (3.8-10.1) Red Blood Count 3.88mil/mm3 (3.90-5.20) Hemoglobin 11.8g/dL (12.0-15.6) Hematocrit 34.5% (35.0-46.0) Mean Corpuscular Volume 88.9fL (81-100) Mean Corpuscular Hemoglobin 30.4pg (27.0-35.0) Mean Corpuscular Hemoglobin Concent 34.2% (32.0-37.0) Red Cell Distribution Width 13.1% (12.3-15.4) Platelet Count 181bil/L (150-400) Neutrophils (%) (Auto) 69.3% (40-74) Lymphocytes (%) (Auto) 17.6% (14-46) Monocytes (%) (Auto) 8.6% (4-12) Eosinophils (%) (Auto) 3.2% (0-5) Basophils (%) (Auto) 0.3% (0-3) Activated Partial Thromboplast Time 61.6sec (22.8-33.0) Sodium Level 138mEq/L (134-144) Potassium Level 4.1mEq/L (3.5-5.2) Chloride Level 105mEq/L (97-108) Carbon Dioxide Level 19mmol/L (18-29) Blood Urea Nitrogen 7mg/dL (6-20) Creatinine 0.55mg/dL (0.57-1.00) Estimat Glomerular Filtration Rate 183mL/min (>59) Glucose Level 92mg/dL (60-99) Calcium Level 8.3mg/dL (8.5-10.1) Magnesium Level 1.7mg/dL (1.6-2.6) Total Bilirubin 0.2mg/dL (0.0-1.2) Aspartate Amino Transf (AST/SGOT) 32U/L (0-50) Alanine Aminotransferase (ALT/SGPT) 26U/L (0-32) Alkaline Phosphatase 64U/L (25-150) Total Protein 6.0g/dL (6.4-8.4) Albumin 3.2g/dL (3.4-5.0) Discharge Medications Discharge Medications Heparin Sod,Porcine/0.9 % NaCl (Heparin 5,000 Unit/1,000 ml-Ns) 5,000 Unit/1000 Ml (5 Unit/Ml) Iv.soln 10,000 UNIT SUBQ Q12H Prescribed by: NATHANIEL GAMEZ MD Ranitidine (Ranitidine) 150 Mg Capsule 150 MG PO DAILY (Reported) Sertraline HCl (Sertraline) 20 Mg/1 Ml Oral.conc 50 MG PO DAILY (Reported) Durable Medical Equipment Syringe W-Needle,Disposb,0.5ML (Tuberculin Syringe) 1 Each Disp.syrin 1 EACH [facility] Q12H (DME) Prescribed by: NATHANIEL GAMEZ MD Additional med instructions Please continue Heparin shot 10,000unit every 12hours until you see your doctor Followup Plan Disposition: home Discharge Diet: No restrictions Discharge Activity: No restrictions Patient Instructions You were hospitalized with acute blood clots in your left calf, likely in the setting of normal . You received anticoagulation treatment with heparin , you tolerated well. As per discussion with OB, you are discharged with heparin injection. Given your expected delivery in near future, you may need to be monitored in higher level of facility at the time of delivery, Please continue to follow with your . Hospitalization course was informed, will refer you appropriately. Follow-up Provider: Tino Roman MD Follow-up with PCP in: 1 week Time spent 65min Nathaniel Gamez MD Jul 29, 2017 15:50
== END 2017-07-29 13:29 | disposition home or self-care (01) | DRG 781 ==
LOC: SED 17:44 → MPC 22:25
PROVIDERS: ADMIT Hospitalist; ATTEND Internal Medicine
PROC: 3E033GC Introduction of Other Therapeutic Substance into Peripheral Vein, Percutaneous Approach (ICD-10-PCS; principal; 2017-07-28)
DX: O22.33 Deep phlebothrombosis in pregnancy, third trimester (principal); O99.413 Diseases of the circulatory system complicating pregnancy, third trimester; I82.432 Acute embolism and thrombosis of left popliteal vein; I49.3 Ventricular premature depolarization; Z3A.34 34 weeks gestation of pregnancy